=== PATIENT | male | born 1995 | race Two or more races ===

== ENCOUNTER 2024-03-19 23:47 | Emergency (ER) | payer SELFPAY ==
[2024-03-19 23:48] VITALS: BMI 26.5
[2024-03-20 00:08] VITALS: BP 142/100; PULSE 87; RESP 18; TEMP 36.9; O2SAT 99
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
[2024-03-20 00:46] LABS: Basophils # (Auto) 0.1 Thou/mm3 (0.0-0.2); Basophils % (Auto) 1 % (0-2.5); Eosinophils # (Auto) 0.1 Thou/mm3 (0.0-0.5); Eosinophils % (Auto) 1 % (0-10); Hematocrit 45.6 % (41.0-53.0); Hemoglobin 15.6 g/dL (13.5-16.0); Immature Granulocytes % (Auto) 0 % (0-0); Immature Granulocytes Auto 0.03 Thou/mm3 (0.00-0.00); Lymphocytes # (Auto) 2.5 Thou/mm3 (1.0-4.8); Lymphocytes % (Auto) 26 % (10-50); Mean Corpuscular HGB Conc 34.2 g/dl (31.0-37.0); Mean Corpuscular Hemoglobin 29.8 pg (25.0-35.0); Mean Corpuscular Volume 87 fL (80-100); Monocytes # (Auto) 0.5 Thou/mm3 (0.0-0.8); Monocytes % (Auto) 6 % (0-12); Neutrophils # (Auto) 6.3 Thou/mm3 (1.8-7.7); Neutrophils % (Auto) 67 % (37-80); Nucleated Red Blood Cell % 0 /100 WBC (0); Platelet Count 272 Thou/mm3 (140-440); RDW Standard Deviation 38.8 fL (35.1-43.9); Red Blood Count 5.23 Miln/mm3 (4.50-5.90); White Blood Count 9.5 Thou/mm3 (3.8-10.6)
[2024-03-20 01:05] LABS: Alanine Aminotransferase 45 U/L (10-49); Albumin, Serum 5.1 gm/dL (3.5-5.0); Alcohol, Blood Medical 178.6 mg/dL (0-10.0); Alkaline Phosphatase 87 U/L (46-116); Anion Gap 8 (7-16); Aspartate Amino Transferase 33 U/L (0-34); BUN/Creatinine Ratio 9 Ratio (12-20); Bilirubin,Total 0.4 mg/dL (0.3-1.2); Blood Urea Nitrogen 8 mg/dL (9-23); Carbon Dioxide 27.6 mMol/L (20.0-31.0); Chloride 107 mMol/L (98-107); Creatinine (Component) 0.9 mg/dL (0.6-1.3); Estimated Creatinine Clearance 123.9 mL/min (>60); Globulin 2.6 gm/dL (2.3-3.5); Glucose 103 mg/dL (74-106); Magnesium 2.4 mg/dL (1.6-2.6); Osmolality,Calculated 283 (275-295); Potassium 4.6 mMol/L (3.4-5.1); Sodium 143 mMol/L (136-145); Total Protein 7.7 gm/dL (5.7-8.2); eGFR > 60 See Note
[2024-03-20 01:18] LABS: Partial Thromboplastin Time 25.4 Seconds (22.0-36.0); Prothrombin Time 10.9 Seconds (9.0-12.2)
--- NOTE | 2024-03-20 01:31 | PRELIM_ITS ---
CT scan of the head without intravenous contrast (axial sections with sagittal and coronal reformats) March 20, 2024 at 0025 hours Clinical History: Trauma Comparison: None.Findings:No evidence of in tracranial hemorrhage, mass effect or midline shift. The ventricles and CSF spaces are unremarkable. The calvarium is intact. Left posterior subcutaneous scalp hematoma. Left periorbital subcutaneous hematoma.The mastoid air cells and the visualized paranasal sinuses are clear.Impression:No evidence of intracranial hemorrhage, midline shift or calvarial fracture. Report Electronically Signed By: Danna Donahue 03/20/2024 1:31:01 AM [EST]
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
--- NOTE | 2024-03-20 01:35 | PRELIM_ITS ---
CT maxillofacial without intravenous contrast (axial sections with sagittal and coronal reformats). D ecember 2023 at 0027 hours Clinical History: Trauma.Comparison: No prior study is available for c omparison. Findings:Acute bilateral nasal bone fractures, mildly displaced. The maxillary sinus and o rbital hernandez are intact. No fluid levels are seen. No evidence of intraorbital hematoma, proptosis, g lobe injury or radiodense foreign body. The zygomatic arches and mandible are intact.Left periorbital subcutaneous hematoma.Impression:Acute bilateral nasal bone fractures. Report Electronically Signed By: Nakul Donahue 03/20/2024 1:34:26 AM [EST]
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
== END 2024-03-20 00:44 | disposition left against medical advice (07) ==
PROVIDERS: Emergency Provider Emergency Medicine; PCP Nurse Practitioner Family
DX: S02.2XXA Fracture of nasal bones, initial encounter for closed fracture (principal); Y04.0XXA Assault by unarmed brawl or fight, initial encounter
CPT/HCPCS: 36415; 70450; 70486; 72125; 80053; 80307; 80320; 83735; 85025; 85610; 85730; 99281; G0480

== ENCOUNTER 2024-03-21 11:27 | Emergency (ER) | payer SELFPAY ==
[2024-03-21 11:29] VITALS: BMI 29.5
[2024-03-21 11:44] VITALS: BP 128/80; PULSE 67; RESP 16; TEMP 36.9; O2SAT 98; BMI 29.5
[2024-03-21] MEDS: IBUPROFEN TAB 400 MG TABLET 800 MG PO (12:33)
[2024-03-21] MEDS: DIPHTH,PERTUSS(ACELL),TET VAC 0.5 ML VIAL IMi (12:34)
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
== END 2024-03-21 13:33 | disposition home or self-care (01) ==
LOC: SERX 13:24
PROVIDERS: Emergency Provider Emergency Medicine
DX: S02.2XXA Fracture of nasal bones, initial encounter for closed fracture (principal); Y04.8XXA Assault by other bodily force, initial encounter; Y92.511 Restaurant or cafe as the place of occurrence of the external cause; Z23 Encounter for immunization
CPT/HCPCS: 90471; 90715; 99282; A9270

== ENCOUNTER 2024-08-05 14:57 | Emergency (ER) | payer MEDICAID, SELFPAY ==
[2024-08-05 14:58] VITALS: BMI 27.3
[2024-08-05 16:02] VITALS: BP 141/96; PULSE 88; RESP 18; TEMP 37.2; O2SAT 99
--- NOTE | 2024-08-05 16:15 | PD.EDBACK ---
ED Back Injury Pain RME/HPI General Chief Complaint: Back Pain/Injury Stated Complaint: LEG NUMB TODAY, HX BACK PROBLEMS Time Seen by Provider: 08/05/24 15:20 Arrival date/time: 08/05/24 14:57 This is a 29-year-old male that comes in with complaints of back pain. Patient states that he has chronic back pain. Patient has had scans of his lower back and every once in a while his lower back acts up. Patient denies any numbness tingling. Patient denies any loss of bowel or bladder control. Patient reports running out of medications for pain. Patient states he has come into the emergency room for pain relief in the past. Related Data Previous Rx's ?Medication ?Instructions ?Recorded Hydrocodone/Acetaminophen * (NORCO 1 tab PO Q6H PRN PAIN #20 tabs 08/09/14 5/325 *) cyclobenzaprine 10 mg tablet 10 mg PO BID PRN muscle spasm #14 08/30/20 tabs hydrocodone 10 mg-acetaminophen 1 tab PO BID PRN pain #20 tabs 08/30/20 325 mg tablet cyclobenzaprine 10 mg tablet 10 mg PO TID PRN muscle spasm #14 09/04/22 tabs hydrocodone 5 mg-acetaminophen 325 1 tab PO Q8H PRN pain #6 tabs 09/04/22 mg tablet ibuprofen 800 mg tablet 800 mg PO Q6H PRN pain #14 tabs 09/04/22 cyclobenzaprine 10 mg tablet 10 mg PO TID PRN muscle spasm #20 08/05/24 tabs ibuprofen 800 mg tablet 800 mg PO Q6H PRN pain #20 tabs 08/05/24 Allergies Allergy/AdvReac Type Severity Reaction Status Date / Time No Known Allergies Allergy Verified 08/05/24 15:01 Course Orders Category Date Time Status Acetaminophen Tab [Tylenol ES Tab] Med 08/05/24 16:14 Once 1,000 mg PO X1 ONE CYCLObenzaPRINE [Flexeril] Med 08/05/24 16:14 Once 10 mg PO X1 ONE Ketorolac Inj [Toradol Inj] Med 08/05/24 16:14 Once 60 mg IM X1 ONE Metoclopramide Inj [Reglan Inj] Med 08/05/24 16:14 Once 10 mg IM X1 ONE Vital Signs Vital signs: Vital Signs Temperature 98.9 F 08/05/24 16:02 Pulse Rate 88 08/05/24 16:02 Respiratory Rate 18 08/05/24 16:02 Blood Pressure 141/96 H 08/05/24 16:02 Pulse Oximetry (%) 99 08/05/24 16:02 Oxygen Delivery Method Room Air 08/05/24 16:02 Back Pain / Injury Medications / Prescriptions Medication administrations:: Medication Administration History Acetaminophen (Acetaminophen 500 Mg Tablet) 1,000 mg PO X1 ONE Stop: 08/05/24 16:15 Cyclobenzaprine HCl (Cyclobenzaprine 5 Mg Tablet) 10 mg PO X1 ONE Stop: 08/05/24 16:15 Ketorolac Tromethamine (Ketorolac Inj 60 Mg/2 Ml Vial) 60 mg IM X1 ONE Stop: 08/05/24 16:15 Metoclopramide HCl (Metoclopramide Inj 5 Mg/Ml Vial 2 Ml) 10 mg IM X1 ONE; Protocol Stop: 08/05/24 16:15 Discharge Plan Plan Patient Disposition: HOME (Self Care) Patient condition on transfer: Stable Prescriptions/Referrals Prescriptions/Med Rec: New cyclobenzaprine 10 mg tablet 10 mg PO TID PRN (Reason: muscle spasm) Qty: 20 0RF ibuprofen 800 mg tablet 800 mg PO Q6H PRN (Reason: pain) Qty: 20 0RF No Action Hydrocodone/Acetaminophen * (NORCO 5/325 *) 1 TAB tablet 1 tab PO Q6H PRN (Reason: PAIN) Qty: 20 0RF hydrocodone-acetaminophen 10-325 mg tablet 1 tab PO BID MDD 3 PRN (Reason: pain) Qty: 20 0RF cyclobenzaprine 10 mg tablet 10 mg PO BID PRN (Reason: muscle spasm) Qty: 14 0RF cyclobenzaprine 10 mg tablet 10 mg PO TID PRN (Reason: muscle spasm) Qty: 14 0RF ibuprofen 800 mg tablet 800 mg PO Q6H PRN (Reason: pain) Qty: 14 0RF hydrocodone-acetaminophen 5-325 mg tablet 1 tab PO Q8H MDD 3 PRN (Reason: pain) Qty: 6 0RF Problem List Clinical Impression: Chronic back pain Patient/Caregiver Discharge Instructions Discharge Activity: activity as tolerated Education Materials: ED Back Pain (Acute or Chronic) Additional Instructions: Follow up with primary provider in 1-2 days. Come back to ED if symptoms change or worsen Print Language: Kinyarwanda Stand Alone Forms: [employer] Award Info., Patient Portal Info Letter PA/EXTRUSION MANAGER Supervising Physician PA/EXTRUSION MANAGER Supervising Physician: angélica
[2024-08-05] MEDS: CYCLObenzaPRINE 5 MG TABLET 10 MG PO (16:44)
[2024-08-05] MEDS: KETOROLAC INJ 60 MG/2 ML VIAL IM (16:45)
[2024-08-05] MEDS: METOCLOPRAMIDE INJ 5 MG/ML VIAL 2 ML 10 MG IM (16:46)
[2024-08-05 17:07] VITALS: RESP 18; TEMP 37.2; O2SAT 99
== END 2024-08-05 17:23 | disposition home or self-care (01) ==
LOC: SERX 16:21
PROVIDERS: Emergency Provider Emergency Medicine
DX: G89.29 Other chronic pain (principal); M54.9 Dorsalgia, unspecified
CPT/HCPCS: 96372; 99283; J1885; J2765; A9270